=== PATIENT | female | born 1995 | race Caucasian/White ===

== ENCOUNTER 2020-08-03 07:12 | Outpatient (REF) | payer OTHER, SELFPAY ==
[2020-08-03 08:29] LABS: COVID-19 Test Negative (Negative); IDNOW Serial# 55D5AD1C
== END 2020-08-03 07:13 | disposition home or self-care (01) ==
LOC: HO.EMPCOV 07:12
PROVIDERS: Visit Provider Internal Medicine
DX: Z20.828 Contact with and (suspected) exposure to other viral communicable diseases (principal)
CPT/HCPCS: 87635; C9803

== ENCOUNTER 2020-08-05 13:11 | Outpatient (REF) | payer OTHER, SELFPAY ==
[2020-08-05 13:47] LABS: COVID-19 Test Negative (Negative)
== END 2020-08-05 13:12 | disposition home or self-care (01) ==
LOC: HO.EMPCOV 13:11
PROVIDERS: Visit Provider Internal Medicine
DX: Z20.828 Contact with and (suspected) exposure to other viral communicable diseases (principal)
CPT/HCPCS: 87635; C9803

== ENCOUNTER 2020-08-07 06:34 | Outpatient (REF) | payer OTHER, SELFPAY ==
[2020-08-07 06:54] LABS: COVID-19 Test Negative (Negative); IDNOW Serial# 55D5AD1C
== END 2020-08-07 06:35 | disposition home or self-care (01) ==
LOC: HO.EMPCOV 06:34
PROVIDERS: Visit Provider Internal Medicine
DX: Z20.828 Contact with and (suspected) exposure to other viral communicable diseases (principal)
CPT/HCPCS: 87635; C9803

== ENCOUNTER 2020-08-10 07:02 | Outpatient (REF) | payer OTHER, SELFPAY ==
[2020-08-10 07:43] LABS: COVID-19 Test Negative (Negative)
== END 2020-08-10 07:03 | disposition home or self-care (01) ==
LOC: HO.EMPCOV 07:02
PROVIDERS: Visit Provider Internal Medicine
DX: Z20.828 Contact with and (suspected) exposure to other viral communicable diseases (principal)
CPT/HCPCS: 87635; C9803

== ENCOUNTER 2020-08-16 06:24 | Outpatient (REF) | payer OTHER, SELFPAY ==
--- NOTE | 2020-08-16 06:36 | XR_ITS ---
EXAMINATION: XR CHEST CLINICAL INFORMATION: Cough, bronchitis. COMPARISON: None TECHNIQUE: 2 views of the chest were obtained. FINDINGS: The lungs are well expanded. There is no focal consolidation, edema, or effusion. No pneumothorax. The cardiomediastinal silhouette is within normal limits. No acute osseous abnormality. XR/XR chest 2V IMPRESSION: Clear lungs.
== END 2020-08-16 06:25 | disposition home or self-care (01) ==
LOC: HO.XRAY 06:24
PROVIDERS: Visit Provider Family Medicine
DX: R05 Cough (principal); J40 Bronchitis, not specified as acute or chronic
CPT/HCPCS: 71046

== ENCOUNTER 2020-11-04 08:16 | Outpatient (REF) | payer OTHER, SELFPAY ==
[2020-11-04 08:38] LABS: COVID-19 Test Negative (Negative); IDNOW Serial# 55D5AD1C
== END 2020-11-04 08:17 | disposition home or self-care (01) ==
LOC: HO.EMPCOV 08:16
PROVIDERS: Visit Provider Internal Medicine
DX: Z20.822 Contact with and (suspected) exposure to COVID-19 (principal)
CPT/HCPCS: 87635; C9803

== ENCOUNTER 2021-05-19 09:27 | Outpatient (REF) | payer OTHER, SELFPAY ==
[2021-05-19 10:07] LABS: COVID-19 Test Negative (Negative)
== END 2021-05-19 09:28 | disposition home or self-care (01) ==
LOC: HO.LAB 09:27
PROVIDERS: PCP Internal Medicine; Visit Provider Internal Medicine
DX: Z20.822 Contact with and (suspected) exposure to COVID-19 (principal)
CPT/HCPCS: 36415; 87635; C9803

== ENCOUNTER 2021-05-22 17:44 | Outpatient (REF) | payer OTHER, SELFPAY ==
[2021-05-22 18:09] LABS: COVID-19 Test Negative (Negative)
== END 2021-05-22 17:45 | disposition home or self-care (01) ==
LOC: HO.LNP 17:44
PROVIDERS: Visit Provider Internal Medicine
DX: Z20.822 Contact with and (suspected) exposure to COVID-19 (principal)
CPT/HCPCS: 87635

== ENCOUNTER 2022-03-12 18:50 | Outpatient (REF) | payer OTHER, SELFPAY ==
[2022-03-12 19:08] LABS: COVID-19 Test Negative (Negative)
== END 2022-03-12 18:51 | disposition home or self-care (01) ==
LOC: HO.LNP 18:50
PROVIDERS: Visit Provider Internal Medicine
DX: Z20.822 Contact with and (suspected) exposure to COVID-19 (principal)
CPT/HCPCS: 87635

== ENCOUNTER 2022-12-25 01:22 | Outpatient (REF) | payer OTHER, SELFPAY ==
[2022-12-25 01:45] LABS: COVID-19 Test Negative (Negative); IDNOW Serial# BCCEAD1C
== END 2022-12-25 01:23 | disposition home or self-care (01) ==
LOC: HO.LAB 01:22
PROVIDERS: Visit Provider Internal Medicine
DX: Z20.822 Contact with and (suspected) exposure to COVID-19 (principal)
CPT/HCPCS: 87635